=== PATIENT | male | born 1940 | race American Indian/Alaskan Native ===

== ENCOUNTER 2016-12-09 10:04 | Emergency (ER) | payer MEDICARE ==
[2016-12-09 10:49] LABS: Basophils % (Auto) 0.4 % (0.0-1.8); Eosinophils % (Auto) 0.1 % (0.0-4.3); Hematocrit 37.8 % (35.5-45.6); Hemoglobin 12.7 gm/dl (11.8-15.2); Mean Corpuscular HGB Conc 34 % (32-34); Mean Corpuscular Hemoglobin 32 pg (28-32); Mean Corpuscular Volume 95 fl (84-94); Platelet Count 174 K/mm3 (140-440); Red Cell Distribution Width 14.4 % (13.2-15.2); White Blood Count 8.3 K/mm3 (4.5-11.0)
[2016-12-09 11:02] LABS: Anion Gap 22 mmol/L; BUN/Creatinine Ratio 17.77; Blood Urea Nitrogen 16 mg/dL (9-20); Calcium 9.1 mg/dL (8.4-10.2); Carbon Dioxide 22 mmol/L (22-30); Glucose 127 mg/dL (75-100); Potassium 3.9 mmol/L (3.6-5.0); Sodium 139 mmol/L (137-145)
--- NOTE | 2016-12-09 11:28 | Emergency Department Report ---
ED General Adult HPI - General Chief complaint: Altered Mental Status Stated complaint: AMS Time Seen by Provider: 12/09/16 11:03 Source: family, EMS Mode of arrival: Stretcher Limitations: Altered Mental Status - History of Present Illness Initial comments: 76-year-old male presents to the emergency department via EMS for evaluation of altered mental status. Per report, the patient was found lying face down on the floor at this personal half-way this morning. Patient was last seen prior to this at 7 AM this morning. Family states that the patient told them that he hit his head and is complaining of back pain. Family at bedside states that the patient is currently at his baseline mentally. Patient is currently complaining of no symptoms. Family is concerned that the patient may have had another seizure at the personal half-way, causing him to be found on the floor. There are no other complaints. -: Sudden, This morning Location: head, back Improves with: none Worsens with: none Associated Symptoms: denies other symptoms Treatments Prior to Arrival: none - Related Data Home Medications Medication Instructions Recorded Confirmed Last Taken Atenolol [Tenormin] 25 mg PO DAILY 08/21/14 12/09/16 12/09/16 Calcium Carbonate [Oscal] 500 mg PO DAILY 08/21/14 12/09/16 12/09/16 Cholecalciferol (Vitamin D3) 400 units PO DAILY 08/21/14 12/09/16 12/09/16 [Vitamin D3] Donepezil [Aricept] 10 mg PO QDAY 08/21/14 12/09/16 12/09/16 Ferrous Sulfate [Feosol] 325 mg PO BID 08/21/14 12/09/16 12/09/16 Lisinopril [Zestril TAB] 5 mg PO QDAY 08/21/14 12/09/16 12/09/16 Sertraline [Zoloft] 50 mg PO QDAY 08/21/14 12/09/16 12/09/16 Tamsulosin [Flomax] 0.4 mg PO DAILY 08/21/14 12/09/16 12/09/16 carBAMazepine [TEGretol] 1,000 mg PO QAM&QHS 08/21/14 12/09/16 12/09/16 metFORMIN [Glucophage] 500 mg PO DAILY 08/21/14 12/09/16 12/09/16 risperiDONE [RisperDAL] 0.5 mg PO QDAY 08/21/14 12/09/16 12/09/16 Previous Rx's Medication Instructions Recorded Last Taken Type methOCARBAMOL [Robaxin TAB] 500 mg PO BID PRN #10 tab 12/09/16 Unknown Rx Allergies Allergy/AdvReac Type Severity Reaction Status Date / Time No Known Allergies Allergy Unverified 08/21/14 11:36 ED Review of Systems ROS: Stated complaint: AMS Other details as noted in HPI Comment: Unobtainable due to pts medical conditions ED Past Medical Hx - Past Medical History Previous Medical History?: Yes Hx Hypertension: Yes Hx Diabetes: Yes Hx Arthritis: Yes Hx Seizures: Yes Hx Psychiatric Treatment: Yes (sleeping disorder) Hx Dementia: Yes - Surgical History Past Surgical History?: Yes Additional Surgical History: Brain surgery - Family History Family history: no significant - Social History Smoking Status: Never Smoker Substance Use Type: None - Medications Home Medications: Home Medications Medication Instructions Recorded Confirmed Last Taken Type Atenolol [Tenormin] 25 mg PO DAILY 08/21/14 12/09/16 12/09/16 History Calcium Carbonate [Oscal] 500 mg PO DAILY 08/21/14 12/09/16 12/09/16 History Cholecalciferol (Vitamin D3) 400 units PO DAILY 08/21/14 12/09/16 12/09/16 History [Vitamin D3] Donepezil [Aricept] 10 mg PO QDAY 08/21/14 12/09/16 12/09/16 History Ferrous Sulfate [Feosol] 325 mg PO BID 08/21/14 12/09/16 12/09/16 History Lisinopril [Zestril TAB] 5 mg PO QDAY 08/21/14 12/09/16 12/09/16 History Sertraline [Zoloft] 50 mg PO QDAY 08/21/14 12/09/16 12/09/16 History Tamsulosin [Flomax] 0.4 mg PO DAILY 08/21/14 12/09/16 12/09/16 History carBAMazepine [TEGretol] 1,000 mg PO QAM&QHS 08/21/14 12/09/16 12/09/16 History metFORMIN [Glucophage] 500 mg PO DAILY 08/21/14 12/09/16 12/09/16 History risperiDONE [RisperDAL] 0.5 mg PO QDAY 08/21/14 12/09/16 12/09/16 History methOCARBAMOL [Robaxin TAB] 500 mg PO BID PRN #10 tab 12/09/16 Unknown Rx ED Physical Exam - General Limitations: Altered Mental Status General appearance: alert, in no apparent distress - Head Head exam: Present: atraumatic, normocephalic - Eye Eye exam: Present: normal appearance, PERRL, EOMI - ENT ENT exam: Present: normal exam, normal orophraynx, mucous membranes moist - Neck Neck exam: Present: normal inspection, full ROM. Absent: tenderness - Respiratory Respiratory exam: Present: normal lung sounds bilaterally. Absent: respiratory distress - Cardiovascular Cardiovascular Exam: Present: regular rate, normal rhythm, normal heart sounds - GI/Abdominal GI/Abdominal exam: Present: soft, normal bowel sounds. Absent: distended, tenderness - Extremities Exam Extremities exam: Present: normal inspection, full ROM. Absent: tenderness - Back Exam Back exam: Present: normal inspection, full ROM, muscle spasm, paraspinal tenderness (left lumbar). Absent: vertebral tenderness - Neurological Exam Neurological exam: Present: alert. Absent: oriented X3 (oriented to person only , at baseline per family at bedside), motor sensory deficit - Skin Skin exam: Present: warm, dry, intact ED Course Vital Signs 12/09/16 12/09/16 10:04 12:00 Temperature 97.9 F 98.2 F Pulse Rate 84 76 Respiratory 16 16 Rate Blood Pressure 151/82 Blood Pressure 147/93 [Left] O2 Sat by Pulse 100 100 Oximetry ED Medical Decision Making - Lab Data Result diagrams: 12/09/16 10:31 12/09/16 10:31 - EKG Data -: EKG Interpreted by Vt EKG shows normal: sinus rhythm, axis, intervals, ST-T waves Rate: normal - EKG Data When compared to previous EKG there are: previous EKG unavailable Interpretation: LVH - Radiology Data Radiology results: report reviewed CT of the head shows encephalomalacia with evidence of bilateral temporal craniotomies. There is no acute intracranial abnormality. - Medical Decision Making Lab and imaging results reviewed and discussed with the family at bedside. She will be discharged back to the personal half-way at this time. - Differential Diagnosis seizure, fall, head injury Critical care attestation.: If time is entered above; I have spent that time in minutes in the direct care of this critically ill patient, excluding procedure time. ED Disposition Clinical Impression: Seizure Low back pain Qualifiers: Chronicity: acute Back pain laterality: left Sciatica presence: without sciatica Qualified Code(s): M54.5 - Low back pain Disposition: DC/TX ANOTHER TYPE HEALTHCARE Is pt being admited?: No Condition: Stable Instructions: Recurrent Seizures Adult (ED), Muscle Spasm (ED) Prescriptions: methOCARBAMOL [Robaxin TAB] 500 mg PO BID PRN #10 tab PRN Reason: Muscle Spasm Referrals: PRIMARY CARE, [Primary Care Provider] - 3-5 Days Time of Disposition: 12:52
[2016-12-09 12:05] LABS: Bilirubin,Urine NEG (Negative); Blood,Urine SM (Negative); Ketones,Urine NEG (Negative); Leukocyte Esterase,Urine NEG (Negative); Mucus,Urine FEW /HPF; Nitrite,Urine NEG (Negative); Urobilinogen,Urine < 2.0 mg/dL (<2.0)
--- NOTE | 2016-12-09 12:26 | Admit Criteria Form ---
Admission Criteria Documentation: MENTAL STATUS CHANGE Clinical Indications for Inpatient Care (Place 'X' for any and all applicable criteria): Ongoing inpatient care may be needed for 1 or more of the following(1)(2)(3)(5)( 6): [ ]I. Suspected serious etiology (eg, medical disorder, PRODUCTION LE[employer]ER event) of altered mental status [ ]II. Danger to self or others not manageable at lower level of care [ ]III. Grave disability (eg, inability to perform self care necessary at lower level of care) [ ]IV. Agitation or inappropriate behavior interfering with care for primary condition (eg, attempting to discontinue lines or drains prematurely, unable to cooperate with respiratory care) [ ]V. Delirium [A] [D][E] as described by 1 or more of the following(26): [ ]a) Delirium due to alcohol or sedative [F] withdrawal [ ]b) Delirium of uncertain etiology that has not responded to appropriate empiric treatment [ ]c) Delirium that prevents performance of a life-sustaining function (eg, feeding or hydrating oneself) [X ]. General contraindications and/or Inappropriate clinical situations for Observational Care in patients with Mental Status Change, when ANY ONE of the following is required: [X ]a) Prediction of prolongation of LOS based on ANY ONE of the following may be considered as a contraindication for observational care 2, 3, 4, 5, 6, 7, 8, 9, 10, 11 [ X]i) Age > 65 yrs. [ ]ii) Patient arriving by ambulance [ ]iii) Patient with high acuity [ ]iv) Patient requiring vital sign monitoring [ ]v) Patient on IV medication [ ]b) Systolic blood pressures greater than or equal to 180mmHg 3, 12 [ ]c) Patient with altered mental status including delirium and other alteration of consciousness, (3) [ ]d) Patient whose discharge disposition will be to a residential home or rehabilitation home should not be managed in Emergency Department Observation Unit. CMS rule requires 3 days hospital stay before such placement.3,13 [ ]e) Patient with failure to thrive due to broad array of etiologies 3,16,17 [ ]f) Inability to ambulate 3,14 Extended stay beyond goal length of stay for the primary condition may be needed until ALL of the following are present(3)(5): [ ]a) Underlying medical etiology of mental status change is absent, or has been established and adequately treated [ ]b) Danger to self or others is absent or manageable at lower level of care. [ ]c) Behavior crisis management, including physical or chemical restraints, is not required or available at lower level of car [ ]d) Substance or alcohol withdrawal is absent or manageable at lower level of care. [ ]e) Behavioral symptoms (eg, agitation, somnolence, inappropriate behavior) are absent, or are manageable at lower level of care. The original [facility] content created by [facility] has been revised. The portions of the content which have been revised are identified through the use of italic text or in bold, and [facility] has neither reviewed nor approved the modified material. All other unmodified content is copyright [facility]. Please see references footnoted in the original [facility] edition 2016
--- NOTE | 2016-12-09 12:33 | Cat Scan Report ---
CT HEAD WITHOUT CONTRAST INDICATION: Fall at personal residential. COMPARISON: None similar. FINDINGS: Noncontrast head CT demonstrates prior bilateral temporal craniotomy defects with large, approximately 8 x 4 cm left predominantly temporal lobe encephalomalacia, some also extending into the frontoparietal lobes. Mild ex-vacuo dilatation of the left lateral ventricle posteriorly. Otherwise symmetric, age-appropriate ventricles and sulci. Mild bifrontal prominence/enlargement of the CSF spaces up to 0.5 cm. No definite acute infarct, hemorrhage, mass effect or midline shift. No acute abnormal extra axial fluid collections. Normal posterior fossa with preserved basilar cisterns. Unremarkable eye globes. Rightward nasal septal deviation anteriorly. Mild bilateral ethmoid and slight maxillary sinus mucosal thickening. Clear remainder imaged paranasal sinuses and mastoid air cells. Atherosclerotic internal carotid artery calcifications. Normal remainder calvarium and scalp. Edentulous jaw. CONCLUSION: No acute intracranial CT abnormality with age appropriate atrophy and bilateral temporal craniotomies with large encephalomalacia on the left, as detailed above. Please correlate. Thank you for the opportunity to participate in this patient's care.
[2016-12-09 13:08] VITALS: BP 134/92
== END 2016-12-09 13:10 | disposition other institution (70) ==
LOC: ED 10:04
DX: R56.9 Unspecified convulsions (principal); M54.5 Low back pain; I10 Essential (primary) hypertension; E11.9 Type 2 diabetes mellitus without complications; F03.90 Unspecified dementia, unspecified severity, without behavioral disturbance, psychotic disturbance, mood disturbance, and anxiety
CPT/HCPCS: 36415; 70450; 80048; 81001; 82962; 85025; 93005; 93010; 99284